=== PATIENT | female | born 1955 | race Caucasian/White ===

== ENCOUNTER 2019-02-05 12:24 | Emergency (ER) | payer OTHER ==
[2019-02-05 12:56] VITALS: BP 138/73; PULSE 60; TEMP 97.8; BMI 35.4
--- NOTE | 2019-02-05 13:36 | PDOC ---
History of Present Illness - General Chief Complaint: Pain Stated Complaint: LEFT HIP PAIN Time Seen by Provider: 02/05/19 12:49 History Source: Patient, Family Exam Limitations: No Limitations - History of Present Illness Initial Comments: 02/05/19 13:30 CC; left hip pain x 4D HPI: no trauma, spontaneous onset of left hip pain on Thursday, no fever or chills pain starts at left lateral hip radiates down the left lateral and anterior thigh, down towards the knee worse with walking no swelling no skin rash has some tingling in the toes on the left foot Past History - Past Medical History Allergies/Adverse Reactions: Allergies Allergy/AdvReac Type Severity Reaction Status Date / Time Iodine and Iodide Containing Allergy Intermediate Hives Verified 02/05/19 12:27 Produc Cephalosporins Allergy Mild Rash Verified 02/05/19 12:28 Home Medications: Ambulatory Orders Naproxen [Naprosyn -] 375 mg PO BID PRN #20 tablet 02/05/19 Oxycodone HCl/Acetaminophen [Percocet 5-325 mg Tablet] 1 tab PO Q4H PRN #14 tablet MDD 6 02/05/19 Asthma: No COPD: No Diabetes: No HTN: No Other medical history: RIGHT FOOT PTTD, HVP,CELIAC - Surgical History Lung Surgery: Yes (BIOPSY 2005) - Suicide/Smoking/Psychosocial Hx Smoking History: Never smoked Information on smoking cessation initiated: No Hx Alcohol Use: Yes (SOCIAL) Drug/Substance Use Hx: No Review of Systems - Review of Systems Constitutional: No: Symptoms Reported, See HPI, Chills, Diaphoresis, Fever, Loss of Appetite, Malaise, Night Sweats, Weakness, Weight Stable, Unintentional Wgt. Loss, Unexplained wgt Loss, Other HEENTM: No: Symptoms Reported, See HPI, Eye Pain, Blurred Vision, Tearing, Recent change in vision, Double Vision, Cataracts, Ear Pain, Ocular Prothesis, Ear Discharge, Nose Pain, Nose Congestion, Tinnitus, Nose Bleeding, Hearing Loss , Throat Pain, Throat Swelling, Mouth Pain, Dental Problems, Difficulty Swallowing, Mouth Swelling, Other Respiratory: No: Symptoms reported, See HPI, Cough, Orthopnea, Shortness of Breath, SOB with Exertion, SOB at Rest, Stridor, Wheezing, Productive cough, Hemoptysis, Other Cardiac (ROS): No: Symptoms Reported, See HPI, Chest Pain, Edema, Irregular Heart Rate, Lightheadedness, Palpitations, Syncope, Chest Tightness, Other ABD/GI: No: Symptoms Reported, See HPI, Abdominal Distended, Abd. Pain w/ defecation, Blood Streaked Bowels, Constipated, Diarrhea, Difficulty Swallowing , Nausea, Poor Appetite, Poor Fluid Intake, Rectal Bleeding, Vomiting, Indigestion, Abdominal cramping, Tarry Stools, Other : No: Symptoms Reported, See HPI, Burning, Dysuria, Discharge, Frequency, Flank Pain, Hematuria, Incontinence, Pain, Urgency, Testicular Mass, Testicular Swelling, Lesions, Testicular Pain, Other Musculoskeletal: Yes: See HPI, Joint Pain, Muscle Pain Integumentary: No: Symptoms Reported, See HPI, Bruising, Change in Color, Change in Hair/Nails, Dryness, Erythema, Flushing, Lesions, Lumps, Pallor, Pruritus, Rash, Sweating, Other Neurological: Yes: Tingling (left foot, no weakness, no other area of numbness) Psychiatric: No: Anxiety, Depression, Frequent Crying, Stressors, Sleep Pattern Change, Emotional Problems, Mood Swings, Change in Appetite, Other Endocrine: No: Symptoms Reported, See HPI, Excessive Sweating, Flushing, Intolerance to Cold, Intolerance to Heat, Increased Hunger, Increased Thirst, Increased Urine, Unexplained Weight Gain, Unexplained Weight Loss, Change in Weight, Other Hematologic/Lymphatic: No: Symptoms Reported, See HPI, Anemia, Blood Clots, Easy Bleeding, Easy Bruising, Bleeding Diathesis, Lymph Node Abnormalities, Swollen Glands, Other *Physical Exam - Vital Signs Last Vital Signs Temp Pulse Resp BP Pulse Ox 97.8 F 60 16 138/73 100 02/05/19 12:25 02/05/19 12:25 02/05/19 12:25 02/05/19 12:25 02/05/19 12:25 - Physical Exam Comments: 02/05/19 13:33 exam Vital Signs (72 hours) 02/05/19 12:25 Temperature 97.8 F Pulse Rate 60 Respiratory 16 Rate Blood Pressure 138/73 O2 Sat by Pulse 100 Oximetry (%) a and o x3 perrl op nl neck nl chest clear bs heart rr nl s1s2 no m abd soft nt mod obese back mild lumbar tenderness severe left sciatic notch point tenderness L hip with mild discomfort on ROM L knee nl ROM neuro antalgic gait, walking with cane secondary to L hip pain down the leg strength limited by pain but grossly nl sensation intact except for L toes with subjective tingling but able to sense LT reflexes 1+ knees and ankles bilaterally symetrical no saddle anesthesia Moderate Sedation - Procedure Monitoring Vital Signs: Procedure Monitoring Vital Signs Temperature 97.8 F 02/05/19 12:25 Pulse Rate 60 02/05/19 12:25 Respiratory Rate 16 02/05/19 12:25 Blood Pressure 138/73 02/05/19 12:25 O2 Sat by Pulse Oximetry (%) 100 02/05/19 12:25 ED Treatment Course - RADIOLOGY Radiology Studies Ordered: Category Date Time Status HIP-LEFT [RAD] Stat Radiology 02/05/19 13:16 Ordered SPINE-LUMBAR SACRAL [RAD] Stat Radiology 02/05/19 13:16 Ordered - Medications Given in the ED: ED Medications Discontinued Medications Generic Name Dose Route Start Last Admin Trade Name Freq PRN Reason Stop Dose Admin Oxycodone/Acetaminophen 1 combo 02/05/19 13:16 02/05/19 13:20 Percocet 5/325 - PO 02/05/19 13:17 1 combo ONCE ONE Administration Medical Decision Making - Medical Decision Making 02/05/19 14:50 L hip pain down the leg without trauma exam with more sciatic type pain, less likely hip joint as cause neuro with tingling in the toes, but no motor weakness and normal reflexes xray with mild spondylolisthesis spine, hip ok, preliminary by me, radiology follow up system activated pending radiology reading rx naprosyn and percocet follow up spine dr. Gutierrez *DC/Admit/Observation/Transfer Diagnosis at time of Disposition: Sciatica of left side - Discharge Dispostion Disposition: HOME Condition at time of disposition: Stable Decision to Admit order: No - Prescriptions Prescriptions: Naproxen [Naprosyn -] 375 mg PO BID PRN #20 tablet PRN Reason: hip and leg pain Oxycodone HCl/Acetaminophen [Percocet 5-325 mg Tablet] 1 tab PO Q4H PRN #14 tablet MDD 6 PRN Reason: severe pain in hip and leg - Referrals Referrals: Devin Dasilva [Primary Care Provider] - Willie Gutierrez MD [Emergency Physician] - 2 Days - Patient Instructions Printed Discharge Instructions: DI for Sciatica Additional Instructions: EVALUATION TODAY FOR LEFT HIP AND THIGH PAIN diagnosis is likely sciatica take naprosyn or percocet for pain as prescribed use a warm heating pad for pain follow up Dr Gutierrez for orthopedics and spine return to the ER for any severe or progressive symptoms - Post Discharge Activity
== END 2019-02-05 15:05 | disposition home or self-care (01) ==
LOC: FER 12:24
DX: M54.32 Sciatica, left side (principal)
CPT/HCPCS: 72100-TC-FY; 73502-TC-LT-FY; 99282-25